=== PATIENT | female | born 1985 | race Caucasian/White ===

== ENCOUNTER → 2019-01-01 | Outpatient (CLI) | payer OTHER ==
--- NOTE | 2019-01-01 11:08 | 2DMMODE ---
[facility] [employer] [place] [address] 2 D/M-MODE ECHOCARDIOGRAM Name: AWAISALAINA Room #: REG [facility]#: [id number] ������������� Admission: 01/01/19 ������������� Attend Phys: Bossman Del Cid Discharge: ��� ������������� ��� Date of : 81 Date of Service: 01/01/19 1108 �� Report #: [id number] �������� ��������������������������������������������[id number] THIS REPORT FOR: //name// APPROVED REPORT Study performed: 01/01/2019 09:13:15 EXAM: Comprehensive 2D, Doppler, and color-flow Echocardiogram Patient Location: Out-Patient Status: routine BSA: 1.74 HR: 86 bpm BP: 115/79 mmHg Rhythm: NSR Other Information Study Quality: Good Indications Palpitations 2D Dimensions RVDd: 35.26 mm IVSd: 7.75 (7-11mm) LVOT Diam: 21.73 (18-24mm) LVDd: 48.04 mm PWd: 8.05 (7-11mm) Ascending Ao: 30.52 (22-36mm) LVDs: 31.79 (25-40mm) Aortic Root: 32.45 mm IVC: 16.00 mm Volumes Left Atrial Volume (Systole) Single Plane 4CH: 27.00 mL Single Plane 2CH: 24.03 mL LA ESV Index: 16.42 mL/m2 Aortic Valve AoV Peak Kali.: 1.28 m/s AO Peak Gr.: 7.13 mmHg LVOT Max P.99 mmHg LVOT Max V: 1.12 m/s ZOHREH Vmax: 3.24 cm2 Mitral Valve E/A Ratio: 0.8 MV Decel. Time: 176.08 ms MV E Max Kali.: 0.65 m/s [facility] [address] [place] [address] 2 D/M-MODE ECHOCARDIOGRAM Name: ALAINA ERNANDEZ Room #: [facility].#: [id number] ������������� Admission: 01/01/19 ������������� Attend Phys: Bossman Del Cid Discharge: ��� ������������� ��� Date of : 81 Date of Service: 01/01/19 1108 �� Report #: [id number] �������� ��������������������������������������������[id number] MV A Kali.: 0.86 m/s MV PHT: 51.06 ms IVRT: 100.35 ms Pulmonary Valve PV Peak Kali.: 0.99 m/s PV Peak Gr.: 3.93 mmHg Pulmonary Vein P Vein S: 0.76 m/s P Vein D: 0.50 m/s P Vein S/D Ratio: 1.52 Tricuspid Valve TR Peak Kali.: 1.82 m/s RAP Estimate: 5.00 mmHg TR Peak Gr.: 13.21 mmHg PA Pressure: 18.00 mmHg Left Ventricle The left ventricle is normal size. There is normal left ventricular wall thickness. The left ventricular systolic function is normal. The left ventricular ejection fraction is within the normal range. LVEF is 60-65%. Right Ventricle The right ventricle is normal size. The right ventricular systolic function is normal. Atria The left atrium size is normal. The right atrium size is normal. Aortic Valve The aortic valve is normal in structure, trileaflet. No aortic regurgitation is present. There is no aortic valvular stenosis. Mitral Valve The mitral valve is normal in structure. There is no mitral valve regurgitation noted. No evidence of mitral valve stenosis. Tricuspid Valve The tricuspid valve is normal in structure. Trace tricuspid regurgitation. Estimated PAP of 18 mmHg. Pulmonic Valve Pulmonic valve is not well visualized. Trace to mild pulmonic [facility] [address] [place] [address] 2 D/M-MODE ECHOCARDIOGRAM Name: ALAINA ERNANDEZ Room #: REG [facility]#: [id number] ������������� Admission: 01/01/19 ������������� Attend Phys: Bossman Del Cid Discharge: ��� ������������� ��� Date of : 81 Date of Service: 01/01/19 1108 �� Report #: [id number] �������� ��������������������������������������������[id number] regurgitation. Great Vessels The aortic root is normal in size. The ascending aorta is normal in size. IVC is normal in size and collapses >50% with inspiration. Pericardium There is no pericardial effusion. <Conclusion> The left ventricle is normal size. There is normal left ventricular wall thickness. The left ventricular systolic function is normal. The right ventricle is normal size. The left atrium size is normal. The right atrium size is normal. The aortic valve is normal in structure, trileaflet. There is no mitral valve regurgitation noted. Trace tricuspid regurgitation. Estimated PAP of 18 mmHg. ��������������������������������������������� <ELECTRONICALLY SIGNED> ���������������������������������������� By: Mihir Sahni MD ��������������������������������������������� 01/01/19 1108 1108 1108 Mihir Sahni MD /INF
== END ==
LOC: CV 09:12
DX: R00.2 Palpitations (principal); Z88.8 Allergy status to other drugs, medicaments and biological substances; Z91.013 Allergy to seafood; Z91.018 Allergy to other foods